=== PATIENT | male | born 1995 | race Caucasian/White ===

== ENCOUNTER 2021-06-27 15:03 | Emergency (ER) | payer SELFPAY ==
[~2021-06-27] VITALS: Ht 190.5 cm; Wt 158.8 kg
[2021-06-27 16:17] VITALS: BP 149/93
[2021-06-27] MEDS ORDERED: CLOZ100T32 PO (16:24)
--- NOTE | 2021-06-27 17:47 | NUR ---
pt came back requested for blood draw. melanie lizama aware.
[2021-06-27 18:12] LABS: BASOPHILS % (AUTO) 0.4 % (0.0-2.0); EOSINOPHILS % (AUTO) 0.1 % (0.0-6.0); HEMATOCRIT 45 % (39-51); HEMOGLOBIN 15.4 g/dL (13.5-17.5); LYMPHOCYTES # (AUTO) 3.8 K/uL (0.8-4.8); LYMPHOCYTES % (AUTO) 47.7 % (20.0-44.0); MEAN CORPUSCULAR HGB CONC 34 g/dl (31.0-36.0); MEAN CORPUSCULAR VOLUME 92 fL (80-96); MONOCYTES # (AUTO) 0.5 K/uL (0.1-1.30); MONOCYTES % (AUTO) 6.6 % (2.0-12.0); NEUTROPHILS # (AUTO) 3.6 K/uL (1.8-8.9); NEUTROPHILS % (AUTO) 45.2 % (43.0-81.0); PLATELET COUNT (AUTO) 326 K/uL (150-450); RED BLOOD CELL COUNT(AUTO) 4.88 MIL/uL (4.5-6.0)
== END 2021-06-27 18:42 | disposition home or self-care (01) ==
LOC: ER 15:10
DX: F20.9 Schizophrenia, unspecified (principal); Z76.0 Encounter for issue of repeat prescription; Z79.899 Other long term (current) drug therapy
CPT/HCPCS: 36415; 85025-TC